=== PATIENT | male | born 1990 | race Caucasian/White ===

== ENCOUNTER 2017-08-04 13:44 | Emergency (ER) | payer BC ==
--- NOTE | 2017-08-04 14:09 | Emergency Department Record ---
History of Present Illness - General Chief Complaint: Back Pain/Injury Stated Complaint: BACK PAIN Time Seen by Provider: 08/04/17 13:57 Source: Patient Mode of Arrival: Ambulatory Limitations: No limitations - History of Present Illness Initial Comments: 27 yo male presents with back pain. He initially injured the back in November of 2016 with a bending and twisting movement. He was diagnosed with a herniated disc. He improved but the pain has never completely resolved. The last month the pain has again increased in the lumbar area. He has pain with prolong sitting. He reports that at times he has pain to the left buttocks and left leg. No weakness. No numbness. No changes in bowel function or urination. He does not have a PCP. He did get into a physical therapist in [place]. His PT physician ordered an MRI but it was denied by his insurance. MD Complaint: Back pain Similar Symptoms Previously: Yes Place: Home Radiation: None Severity: Moderate Quality: Aching Consistency: Intermittent Improves With: None Worsens With: None Context: Unknown Associated Symptoms: Denies other symptoms - Related Data Previous Rx's Medication Instructions Recorded Cyclobenzaprine HCl [Flexeril] 10 mg PO TID #25 tablet 08/04/17 Hydrocodone/Acetaminophen [[place] 1 each PO Q8H #12 tablet 08/04/17 5-325 Tablet] Naproxen [Naprosyn] 500 mg PO Q12H #40 tab. 08/04/17 Allergies Allergy/AdvReac Type Severity Reaction Status Date / Time Penicillins Allergy RASH Verified 08/04/17 13:57 Travel Screening - Travel/Exposure Within Last 30 Days Have you traveled within the last 30 days?: No Review of Systems Constitutional: Denies: Chills, Fever, Malaise, Weakness Eyes: Denies: Eye discharge, Eye pain, Photophobia, Vision change ENT: Denies: Congestion, Throat pain Respiratory: Denies: Cough, Dyspnea, Hemoptysis, Wheezes Cardiovascular: Denies: Chest pain, Palpitations, Syncope Endocrine: Denies: Fatigue Gastrointestinal: Denies: Abdominal pain, Diarrhea, Nausea, Vomiting Genitourinary: Denies: Dysuria, Frequency, Hematuria Musculoskeletal: Reports: As per HPI, Back pain, Myalgia. Denies: Arthralgia, Joint swelling, Neck pain Skin: Denies: Bruising, Change in color, Rash Neurological: Denies: Abnormal gait, Confusion, Headache, Numbness, Tingling, Tremors, Vertigo, Weakness Psychiatric: Denies: Anxiety Hematological/Lymphatic: Denies: Blood Clots, Easy bleeding, Easy bruising, Swollen glands Physical Exam - General General Appearance: Alert, Oriented x3, Cooperative, No acute distress Limitations: No limitations - Head Head exam: Atraumatic, Normocephalic, Normal inspection - Eye Eye exam: Normal appearance, PERRL. negative: Conjunctival injection, Scleral icterus - ENT ENT exam: Normal exam Ear exam: Normal external inspection Nasal Exam: Normal inspection Mouth exam: Normal external inspection Teeth exam: Normal inspection Throat exam: Normal inspection - Neck Neck exam: Normal inspection - Respiratory Respiratory exam: Normal lung sounds bilaterally. negative: Respiratory distress - Cardiovascular Cardiovascular Exam: Regular rate, Normal rhythm, Normal heart sounds - GI/Abdominal GI/Abdominal exam: Soft. negative: Tenderness - Rectal Rectal exam: Deferred - exam: Deferred - Extremities Extremities exam: Normal inspection, Full ROM, Normal capillary refill. negative: Joint swelling, Pedal edema, Tenderness - Back Back exam: Reports: Full ROM (slowed but full), Muscle spasm, Tenderness, Vertebral tenderness (Tender lower lumbar to middle lumbar), Other (No foot drop , symmetric +2 reflexes, sensation is intact ). Denies: CVA tenderness (R), CVA tenderness (L), Paraspinal tenderness - Neurological Neurological exam: Alert, Normal gait, Oriented X3, Reflexes normal. negative: Abnormal gait (steady normal gait), Altered, Motor sensory deficit - Psychiatric Psychiatric exam: Normal affect, Normal mood. negative: Agitated, Anxious - Skin Skin exam: Dry, Intact, Normal color, Warm Course Vital Signs 08/04/17 13:52 Temperature 97.6 F Pulse Rate 74 Respiratory 18 Rate Blood Pressure 143/88 Pulse Ox 99 - Reevaluation(s) Reevaluation #1: The L/S spine demonstrated narrowing at the L/S interspace. We discussed the results. Given his symptoms outpatient follow up MRI is recommended 08/04/17 14:52 Disposition Disposition: Discharge Clinical Impression: Sciatica Qualifiers: Laterality: left Qualified Code(s): M54.32 - Sciatica, left side Disposition: Home, Self-Care Condition: (1) Good Instructions: Sciatica (ED) Additional Instructions: Avoid prolonged standing and sitting You will need an MRI of your lumbar sacral spine for your symptoms Follow up with your physical therapist in the next week Call for a new family doctor as well Prescriptions: Cyclobenzaprine HCl [Flexeril] 10 mg PO TID #25 tablet Hydrocodone/Acetaminophen [[place] 5-325 Tablet] 1 each PO Q8H #12 tablet Naproxen [Naprosyn] 500 mg PO Q12H #40 tab.dr Forms: Patient Portal Access Time of Disposition: 14:57 Quality - Quality Measures Quality Measures: N/A - Blood Pressure Screening Does Patient Have Any of the Following: No Blood Pressure Classification: Pre-Hypertensive BP Reading Systolic Measurement: 133 Diastolic Measurement: 82 Screening for High Blood Pressure: < Pre-Hypertensive BP, F/U Documented > [ [id number]] Pre-Hypertensive Follow-up Interventions: Referral to alternative/primary care provider.
[2017-08-04] MEDS ORDERED: KETOROLAC 30 MG/ML VIAL IM ONE (14:10)
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
== END 2017-08-04 15:13 | disposition home or self-care (01) ==
LOC: ER 13:44
DX: M54.32 Sciatica, left side (principal)
CPT/HCPCS: 99283 ×2; 96372; 72110; J1885